=== PATIENT | male | born 1980 | race Caucasian/White ===

== ENCOUNTER 2020-06-30 21:26 | Emergency (ER) | payer OTHER ==
[~2020-06-30] VITALS: Ht 162.6 cm; Wt 65.0 kg
[2020-06-30] MEDS ORDERED: ACETAMINOPHEN 325MG TABLET PO ONE (22:30)
[2020-06-30] MEDS ORDERED: TRAMADOL 50MG TABLET PO ONE (22:30)
[2020-07-01] MEDS ORDERED: TETANUS, DIPHTHERIA, PERTUSSIS VAC/PF 0.5ML (>7YR OLD) IM ONE (00:45)
[2020-07-01] MEDS ORDERED: ONDANSETRON HCL 4MG/2ML INJ IV ONE (00:45)
[2020-07-01] MEDS ORDERED: MORPHINE SULFATE 2 MG/ML CPJ (NOT FOR IM USE) IV ONE (00:45)
[2020-07-01] MEDS ORDERED: LEVOFLOXACIN 500MG PREMIX 100 ML IV ONE (01:15)
[2020-07-01 02:42] VITALS: BP 114/83
== END 2020-07-01 03:12 | disposition short-term general hospital (02) ==
LOC: ER 21:26
DX: S05.31XA Ocular laceration without prolapse or loss of intraocular tissue, right eye, initial encounter (principal); H57.11 Ocular pain, right eye; W51.XXXA Accidental striking against or bumped into by another person, initial encounter; Y93.89 Activity, other specified; Y92.89 Other specified places as the place of occurrence of the external cause; Y99.8 Other external cause status; E11.9 Type 2 diabetes mellitus without complications
CPT/HCPCS: 70480; 90471; 90715; 96365; 96375; 99284; J1956; J2270; J2405